=== PATIENT | female | born 1980 | race Caucasian/White ===

== ENCOUNTER 2020-09-12 06:00 | Outpatient (RCR) | payer MEDICARE, OTHER, SELFPAY | END 2020-10-01 23:59 | disposition home or self-care (01) | LOC: MPT 06:00 | PROVIDERS: Referring Provider Emergency Medicine; Visit Provider Emergency Medicine | DX: G89.29 Other chronic pain (principal); M54.2 Cervicalgia | CPT/HCPCS: 97110; 97140; 97162 ==

== ENCOUNTER → 2020-09-27 17:03 | Outpatient (BNVA) | payer MEDICARE, OTHER, SELFPAY | PROVIDERS: Visit Provider Emergency Medicine | DX: E66.9 Obesity, unspecified (principal); R53.83 Other fatigue; E11.9 Type 2 diabetes mellitus without complications; Y99.1 Military activity; T74.21XA Adult sexual abuse, confirmed, initial encounter; G89.29 Other chronic pain | CPT/HCPCS: 80053; 80061; 83036; 84443; 85025 ==

== ENCOUNTER 2020-10-02 06:00 | Outpatient (RCR) | payer MEDICARE, OTHER, SELFPAY | END 2020-11-01 23:59 | disposition home or self-care (01) | LOC: MPT 06:00 | PROVIDERS: Referring Provider Emergency Medicine; Visit Provider Emergency Medicine | DX: G89.29 Other chronic pain (principal); M54.2 Cervicalgia | CPT/HCPCS: 97110; 97140 ==

== ENCOUNTER 2020-11-02 06:00 | Outpatient (RCR) | payer MEDICARE, OTHER, SELFPAY | END 2020-12-01 23:59 | disposition home or self-care (01) | LOC: MPT 06:00 | PROVIDERS: Referring Provider Emergency Medicine; Visit Provider Emergency Medicine | DX: G89.29 Other chronic pain (principal); M54.2 Cervicalgia | CPT/HCPCS: 97110; 97140; G0283 ==

== ENCOUNTER 2020-12-02 06:00 | Outpatient (RCR) | payer MEDICARE, OTHER, SELFPAY | END 2021-01-01 23:59 | disposition home or self-care (01) | LOC: MPT 06:00 | PROVIDERS: Referring Provider Emergency Medicine; Visit Provider Emergency Medicine | DX: M54.2 Cervicalgia (principal); G89.29 Other chronic pain | CPT/HCPCS: 97110; 97140 ==

== ENCOUNTER 2021-01-02 06:00 | Outpatient (RCR) | payer MEDICARE, OTHER, SELFPAY | END 2021-01-31 23:59 | disposition home or self-care (01) | LOC: MPT 06:00 | PROVIDERS: Referring Provider Emergency Medicine; Visit Provider Emergency Medicine | DX: M54.2 Cervicalgia (principal); G89.29 Other chronic pain | CPT/HCPCS: 97110; 97140 ==

== ENCOUNTER → 2021-06-21 08:25 | Outpatient (BNVA) | payer MEDICARE, OTHER, SELFPAY | PROVIDERS: Visit Provider Orthopaedic Surgery | DX: G89.29 Other chronic pain (principal); M54.9 Dorsalgia, unspecified; M41.9 Scoliosis, unspecified; M43.12 Spondylolisthesis, cervical region | CPT/HCPCS: 72050; 72072; 72110 ==

== ENCOUNTER 2023-07-29 06:02 | Outpatient (CLI) | payer OTHER, SELFPAY ==
--- NOTE | 2023-07-29 | US_ITS ---
WS: [id number] ULTRASOUND ABDOMEN LIMITED CLINICAL INFORMATION: ABDOMINAL PAIN COMPARISON: None. FINDINGS: Liver Size: Enlarged craniocaudal length: 16.6 cm. Echogenicity: Coarse and echogenic surface nodularity: None. Mass (size and location): None. Bile ducts Intrahepatic ducts: Normal. Common bile duct diameter: 0.3 cm. Gallbladder Gallbladder sludge gallstones: None. Gallbladder sludge: Present gallbladder wall thickening: None. Pericholecystic fluid: None. Sonographic Florian sign: Absent. Pancreas Normal as visualized. Right kidney: Normal. Hydronephrosis: None. Size: 10.1 cm x 5.1 cm x 4.2 cm. Abdominal aorta and IVC Visualized portions are normal. Ascites: None. IMPRESSION: 1. Hepatomegaly with diffuse fatty infiltration. 2. Gallbladder sludge. No gallbladder wall thickening or pericholecystic fluid. 3. Normal common bile duct. 4. No hydronephrosis in the RIGHT kidney.
== END 2023-07-29 06:03 | disposition home or self-care (01) ==
LOC: RAD 06:04
PROVIDERS: PCP Nurse Practitioner; Visit Provider Nurse Practitioner
DX: R10.9 Unspecified abdominal pain (principal); K76.0 Fatty (change of) liver, not elsewhere classified; R16.0 Hepatomegaly, not elsewhere classified
CPT/HCPCS: 76705

== ENCOUNTER 2024-12-27 13:12 | Emergency (ER) | payer OTHER, SELFPAY ==
[2024-12-27 13:21] VITALS: BP 149/89; PULSE 76; RESP 18; TEMP 36.2; O2SAT 98; BMI 32.5
[2024-12-27 13:31] LABS: Basophils % 0.3 %; Hematocrit 41.6 % (36-47); Lymphocytes % 33.8 %; Mean Corpuscular Hemoglobin 27.6 pg (27-33); Mean Corpuscular Volume 86.3 fl (85-98); Mean Platelet Volume 9.2 fL (7.4-10.4); Monocytes # 0.3 10^3/uL (0.2-0.9); Monocytes % 5.7 %; Neutrophils # 3.57 10^3/uL (1.8-7.7); Neutrophils % 59.9 %; Nucleated Red Blood Cells % 0 %; Platelet Count 291 10^3/cmm (157-399); Red Blood Count 4.82 10^6/uL (3.85-5.65); Red Cell Distribution Width 12.7 % (12.1-15.1); White Blood Count 5.97 10^3/uL (3.29-11.43)
[2024-12-27 13:34] LABS: Bilirubin Urine Negative (Negative); Blood Urine Negative (Negative); Glucose Urine UA Negative (Normal); Ketones Urine Negative (Negative); Leukocyte Esterase Urine 2+ (Negative); Nitrate Urine Negative (Negative); Protein Urine Negative (Negative); Urine Appearance Clear (CLEAR); Urine Color Yellow (Yellow); Urobilinogen Urine 0.2 mg/dL (Negative); pH Urine 5.5 (5-7)
[2024-12-27 13:39] LABS: Add Urine Microscopic? YES; Bacteria Urine None Seen /hpf; RBC Urine 0-2 /hpf (0-2); Squamous Epithelial Cell Urine 0-5 /hpf (0-5)
[2024-12-27 13:40] LABS: HCG, Serum Qual Negative (Negative)
[2024-12-27 13:46] LABS: Alanine Aminotransferase 25 U/L (0-33); Albumin Level 4.1 g/dL (3.5-5.2); Alkaline Phosphatase 68 U/L (35-105); Anion Gap 14.6 (5-19); Aspartate Amino Transferase 38 U/L (0-32); Blood Urea Nitrogen 10 mg/dL (6-20); Calcium 9.1 mg/dL (8.5-10.5); Carbon Dioxide 28 mmol/L (22-29); Chloride 98 mmol/L (98-107); Creatinine Clr Calc Pharmacy 96.9602; Globulin 3.4 g/dL (1.3-4.6); Glomerular Filtration Rate 90.9 mL/min (90-130); Glucose 114 mg/dL (65-115); Lipase 26 U/L (13-60); Osmolality Calculated 284 mOsm/kg (285-295); Potassium 3.6 mmol/L (3.5-5.1); Sodium 137 mmol/L (136-145); Total Bilirubin 0.4 mg/dL (0.15-1.2); Total Protein 7.5 g/dL (6.6-8.7)
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
--- NOTE | 2024-12-27 13:48 | USR_ITS ---
PROCEDURE INFORMATION: Exam: US Abdomen, Limited; Right Upper Quadrant Exam date and time: 12/27/2024 2:38 PM Age: 44 years old Clinical indication: Abdominal pain; Localized; Right upper quadrant (ruq); Prior surgery; Surgery date: 6+ months; Surgery type: Unsure of dates- patient had appendectomy; Additional info: Abd pain TECHNIQUE: Imaging protocol: Real time ultrasound of the abdomen with image documentation. Limited exam focused on the right upper quadrant. COMPARISON: US abdomen limited [id number] 07/29/2023 6:17 AM FINDINGS: Liver: Mild hepatomegaly. Echogenic, consistent with fatty infiltration. 9 x 6 mm cyst in the left hepatic lobe. Gallbladder: No gallstones. No gallbladder wall thickening or pericholecystic fluid. Negative sonographic Florian's sign, as per the performing equipment tester. Biliary ducts: No stones. No ductal dilatation. Pancreas: Unremarkable as visualized. Right kidney: No mass. No definite stones. Mild prominence of the right renal collecting system without rose hydronephrosis. US/US gall bladder [id number] IMPRESSION: 1. Mildly enlarged, fatty liver. 2. Mild prominence of the right renal collecting system without rose hydronephrosis. 3. Additional findings, as above.
[2024-12-27] MEDS: ketorolac 30 mg/mL INJ IVP (14:06)
[2024-12-27] MEDS: prochlorperazine 10 mg/2 mL Inj IVP (14:06)
--- NOTE | 2024-12-27 15:34 | CTR_ITS ---
PROCEDURE INFORMATION: Exam: CT Abdomen And Pelvis Without Contrast Exam date and time: 12/27/2024 4:28 PM Age: 44 years old Clinical indication: Abdominal pain; Flank; Right; Prior surgery; Surgery date: 6+ months; Surgery type: Appy lt ovary; Additional info: Flank pain TECHNIQUE: Imaging protocol: Computed tomography of the abdomen and pelvis without contrast. Axial, coronal and sagittal reformatted images were created and reviewed. Radiation optimization: All CT scans at this facility use at least one of these dose optimization techniques: automated exposure control; mA and/or kV adjustment per patient size (includes targeted exams where dose is matched to clinical indication); or iterative reconstruction. COMPARISON: US gall bladder [id number] 12/27/2024 2:38 PM RADIATION DOSE METRICS: Total DLP (mGy-cm): 705.52 FINDINGS: Lungs: Linear/discoid stranding and groundglass at the lung bases, likely due to atelectasis and/or scarring. Diaphragm: Elevated right hemidiaphragm. Liver: Mild hepatomegaly. Mild, diffuse hepatic steatosis. 7 mm low-density lesion in the left hepatic lobe, too small to characterize. Gallbladder and biliary ducts: No radiodense gallstones. No biliary ductal dilatation. Pancreas: Unremarkable. Spleen: Unremarkable. Adrenal glands: Normal. No mass. Kidneys and ureters: No mass. No radiodense calculi. No hydronephrosis. Stomach and bowel: Moderate amount of retained stool in the colon. No obstruction. No bowel wall thickening. No pneumatosis. Appendix: Status post appendectomy. Intraperitoneal space: No free fluid. No organized fluid collection. No free air. Vasculature: Unremarkable. No aneurysm. Lymph nodes: Small mesenteric lymph nodes, nonspecific in appearance. No pathologically enlarged lymph nodes. Urinary bladder: Unremarkable as visualized. Reproductive: Unremarkable. Bones/joints: No acute osseous abnormality. Osteopenia. Degenerative changes. Soft tissues: Tiny, fat containing umbilical hernia. CT/CT kidney stone [id number] IMPRESSION: 1. Limited noncontrast examination without CT evidence of acute intra-abdominal or pelvic pathology. 2. Additional findings, as above.
[2024-12-27] MEDS: cefTRIAXone 1,000 mg SDV 1000 MG IVP (15:37)
[2024-12-27 17:15] VITALS: BP 121/76; PULSE 76; RESP 16; O2SAT 94
[2024-12-27 17:17] VITALS: BP 121/76; PULSE 67; RESP 18; O2SAT 94
== END 2024-12-27 17:26 | disposition home or self-care (01) ==
PROVIDERS: Emergency Provider Family Medicine; PCP Nurse Practitioner
DX: N30.90 Cystitis, unspecified without hematuria (principal)
CPT/HCPCS: 74176; 76705; 80053; 81001; 83690; 84703; 85025; 96374; 96375; 99285; J0696; J0780; J1885